=== PATIENT | female | born 1950 | race Caucasian/White ===

== ENCOUNTER 2018-09-12 21:35 | Observation (INO) | payer OTHER ==
[2018-09-12] MEDS ORDERED: diazePAM 2 MG TABLET PO ONE (22:12)
[2018-09-12] MEDS ORDERED: PROCHLORPERAZINE MALEATE 5 MG TABLET PO ONE (22:13)
[2018-09-12] MEDS ORDERED: MECLIZINE HCL 25 MG TABLET (FP) PO ONE (22:45)
[2018-09-12] MEDS ORDERED: MECLIZINE HCL 25 MG TABLET (FP) ONE (22:50)
[2018-09-12 22:52] LABS: EPI CELLS 2.4 /HPF (0-5/HPF); URINE APPEARANCE CLEAR; URINE BACTERIA 13.7 /hpf (NEGATIVE); URINE BILIRUBIN NEGATIVE (NEGATIVE); URINE CASTS 8 /lpf (0-8); URINE COLOR DK YELLOW; URINE GLUCOSE (UA) TRACE (NEGATIVE); URINE KETONE TRACE (NEGATIVE); URINE LEUK ESTERASE 1+ (NEGATIVE); URINE NITRITE NEGATIVE (NEGATIVE); URINE PROTEIN NEGATIVE (NEGATIVE); URINE RBC 6 /hpf (0-4); URINE UROBILINOGEN 0.2 mg/dL (0.2-1.0); URINE WBC 8 /hpf (0-5)
[2018-09-12 22:54] LABS: BASO % 0.8 % (0-2.0); EOS % 3.4 % (0-4.5); HEMATOCRIT 40.8 % (32.4-45.2); HEMOGLOBIN 13.5 GM/dL (10.7-15.3); MCH 26.9 pg (25.7-33.7); MCHC 33.2 g/dl (32.0-36.0); MEAN CELL VOLUME 81.1 fl (80-96); MEAN PLT VOLUME 7.6 fl (7.5-11.1); MONO % 7.1 % (3.8-10.2); NEUT % 43.7 % (42.8-82.8); PLATELET COUNT 191 K/MM3 (134-434); RBC 5.03 M/mm3 (3.60-5.2); RDW 15.3 % (11.6-15.6); WHITE BLOOD COUNT 6.2 K/mm3 (4.0-10.0)
--- NOTE | 2018-09-12 23:02 | PDOC ---
History of Present Illness - General History Source: Patient Exam Limitations: No Limitations - History of Present Illness Initial Comments: 09/12/18 22:55 67F with a PMH of DM and vertigo who presents to the ER with complaints of worsening vertigo. The patient states that yesterday and today, she's had worsening of her vertiginous symptoms and worsening severity. She states that it became so bad that she was not able to stand and she fell on "her behind". She denies syncope, head trauma, numbness, tingling, and weakness. She denies CP , SOB, fever, chills, nausea, vomiting, changes in vision. <Darrell Martínez - Last Filed: 09/13/18 01:29> <Dada Childers - Last Filed: 09/13/18 16:11> - General Chief Complaint: Injury Stated Complaint: FALL Time Seen by Provider: 09/12/18 21:51 Past History - Suicide/Smoking/Psychosocial Hx Smoking History: Unknown if ever smoked <Darrell Martínez - Last Filed: 09/13/18 01:29> <Dada Childers - Last Filed: 09/13/18 16:11> - Past Medical History Allergies/Adverse Reactions: Allergies Allergy/AdvReac Type Severity Reaction Status Date / Time ampicillin Allergy Verified 09/12/18 22:21 bee venom protein (honey bee) Allergy Verified 09/12/18 22:21 Penicillins Allergy Verified 09/12/18 22:21 Home Medications: Ambulatory Orders Acetaminophen [Tylenol] 325 mg PO PRN PRN 09/13/18 Alcohol Antiseptic Pads [Alcohol Prep Pads] 1 each TP ASDIR 30 Days #1 box 09/13 Aspirin [Ecotrin] 325 mg PO DAILY 09/13/18 Baclofen 5 mg PO Q8H 09/13/18 Carisoprodol 350 mg PO DAILY 09/13/18 Clopidogrel Bisulfate [Plavix] 75 mg PO DAILY 09/13/18 Diazepam [Valium] 5 mg PO BID 09/13/18 Dicyclomine HCl [Bentyl -] 10 mg PO Q6H 09/13/18 Famotidine 20 mg PO BID 09/13/18 Furosemide 20 mg PO DAILY 09/13/18 Insulin Detemir [Levemir Flextouch] 10 unit SQ DAILY 30 Days #3 insuln.pen 09/13 Lancets 1 each ASDIR 30 Days #1 box 09/13/18 Lisinopril 5 mg PO DAILY 30 Days #30 tablet 09/13/18 Meclizine HCl [Antivert -] 50 mg PO BID 30 Days #120 tablet 09/13/18 Metoprolol Succinate 25 mg PO BID 09/13/18 Miscellaneous Medical Supply [Glucometer Device] 1 each .ROUTE ASDIR #1 kit 07/03 Miscellaneous Medical Supply [Glucometer Test Strips #100] 1 each .ROUTE ASDIR 30 Days #1 box 09/13/18 Nitrofurantoin Monohyd/M-Cryst [Macrobid -] 100 mg PO BID 5 Days #10 capsule 07/03 Potassium Chloride 10 meq PO DAILY 09/13/18 Pravastatin Sodium 20 mg PO DAILY 09/13/18 Prochlorperazine Maleate 5 mg PO TID 09/13/18 Sitagliptin Phos/Metformin HCl [Janumet 50-1,000 mg Tablet] 1 each PO BID Review of Systems - Review of Systems Able to Perform ROS?: Yes Comments:: 09/12/18 22:59 GENERAL/CONSTITUTIONAL: No fever or chills. No weakness. HEAD, EYES, EARS, NOSE AND THROAT: No change in vision. No ear pain or discharge. No sore throat. CARDIOVASCULAR: No chest pain, palpitations, or lightheadedness. RESPIRATORY: No cough, wheezing, shortness of breath, or hemoptysis. GASTROINTESTINAL: No nausea, vomiting, diarrhea, constipation, or abdominal pain. GENITOURINARY: No dysuria, frequency, hematuria, or change in urination. MUSCULOSKELETAL: No joint or muscle swelling or pain. No neck or back pain. SKIN: No rash or lesions. NEUROLOGIC: + for vertiginous dizziness. No headache, numbness, tingling, focal weakness, loss of consciousness, or change in strength/sensation. Is the patient limited Tamazight proficient: No <Darrell Martínez - Last Filed: 09/13/18 01:29> *Physical Exam - Vital Signs Last Vital Signs Temp Pulse Resp BP Pulse Ox 97.8 F 84 17 170/99 97 09/12/18 22:14 09/12/18 22:14 09/12/18 22:14 09/12/18 22:14 09/12/18 22:14 - Physical Exam Comments: 09/12/18 22:59 GENERAL: Well developed, well nourished. Awake and alert. No acute distress. HEENT: Normocephalic, atraumatic. Hearing grossly normal. Moist mucous membranes. PERRLA, EOMI. No conjunctival pallor. Sclera are non-icteric. NECK: Supple. Full ROM. No JVD. CARDIOVASCULAR: Regular rate and rhythm. No murmurs, rubs, or gallops. PULMONARY: No evidence of respiratory distress. Lungs clear to auscultation bilaterally. No wheezing, rales or rhonchi. ABDOMINAL: Soft. Non-tender. Protuberant Non-distended. No rebound or guarding. MUSCULOSKELETAL: Normal range of motion at all joints. No bony deformities or tenderness. EXTREMITIES: No cyanosis. No clubbing. No edema. No calf tenderness or swelling. SKIN: Warm and dry. Normal capillary refill. No rashes. No jaundice. NEUROLOGICAL: Alert, awake, appropriate. Cranial nerves 2-12 intact. No deficits to light touch and temperature in face, upper extremities and lower extremities. 5/5 strength in deltoids, biceps, triceps, quadriceps, hamstrings, and gastrocnemius. Normoreflexic in the upper and lower extremities. Finger to nose normal bilaterally. Normal speech. PSYCHIATRIC: Cooperative. Good eye contact. Appropriate mood and affect. <Darrell Martínez - Last Filed: 09/13/18 01:29> - Vital Signs Last Vital Signs Temp Pulse Resp BP Pulse Ox 98.1 F 92 H 18 121/70 100 09/13/18 15:55 09/13/18 15:55 09/13/18 14:44 09/13/18 15:55 09/13/18 15:55 <Dada Childers - Last Filed: 09/13/18 16:11> ED Treatment Course - LABORATORY CBC & Chemistry Diagram: 09/12/18 22:39 09/12/18 22:39 - ADDITIONAL ORDERS Additional order review: Laboratory Results 09/12/18 22:39 Urine Color Dk yellow Urine Appearance Clear Urine pH 5.0 Ur Specific [place] 1.021 Urine Protein Negative Urine Glucose (UA) Trace Urine Ketones Trace H Urine Blood Negative Urine Nitrite Negative Urine Bilirubin Negative Urine Urobilinogen 0.2 Ur Leukocyte Esterase 1+ H Urine WBC (Auto) 8 Urine RBC (Auto) 6 Urine Casts (Auto) 8 U Epithel Cells (Auto) 2.4 Urine Bacteria (Auto) 13.7 09/12/18 22:39 RBC 5.03 MCV 81.1 MCHC 33.2 RDW 15.3 MPV 7.6 Neutrophils % 43.7 Lymphocytes % 45.0 H Monocytes % 7.1 Eosinophils % 3.4 Basophils % 0.8 - RADIOLOGY Radiology Studies Ordered: Category Date Time Status HEAD CT WITHOUT CONTRAST [CT] Stat CT Scan 09/12/18 22:10 Ordered - Medications Given in the ED: ED Medications Discontinued Medications Generic Name Dose Route Start Last Admin Trade Name Freq PRN Reason Stop Dose Admin Diazepam 2 mg 09/12/18 22:12 09/12/18 22:55 Valium - PO 09/12/18 22:13 Not Given ONCE ONE Meclizine HCl 25 mg 09/12/18 22:45 09/12/18 22:55 Antivert - PO 09/12/18 22:46 25 mg ONCE ONE Administration Prochlorperazine Maleate 5 mg 09/12/18 22:13 09/12/18 22:55 Compazine - PO 09/12/18 22:14 Not Given ONCE ONE <Darrell Martínez - Last Filed: 09/13/18 01:29> - LABORATORY CBC & Chemistry Diagram: 09/13/18 05:05 09/13/18 05:05 - ADDITIONAL ORDERS Additional order review: 09/13/18 09/12/18 00:12 22:39 RBC 5.03 MCV 81.1 MCHC 33.2 RDW 15.3 MPV 7.6 Neutrophils % 43.7 Lymphocytes % 45.0 H Monocytes % 7.1 Eosinophils % 3.4 Basophils % 0.8 POC Glucometer 222 - Medications Given in the ED: ED Medications Discontinued Medications Generic Name Dose Route Start Last Admin Trade Name Freq PRN Reason Stop Dose Admin Diazepam 2 mg 09/12/18 22:12 09/12/18 22:55 Valium - PO 09/12/18 22:13 Not Given ONCE ONE Ceftriaxone Sodium 1,000 mg/ 50 mls @ 100 mls/hr 09/13/18 00:08 09/13/18 01: 36 Dextrose IVPB 09/13/18 00:37 100 mls/hr ONCE ONE Administration Insulin Detemir 5 units 09/13/18 10:48 09/13/18 12:19 Levemir Vial SQ 09/13/18 10:49 5 unit ONCE ONE Administration Meclizine HCl 25 mg 09/12/18 22:45 09/12/18 22:55 Antivert - PO 09/12/18 22:46 25 mg ONCE ONE Administration Prochlorperazine Maleate 5 mg 09/12/18 22:13 09/12/18 22:55 Compazine - PO 09/12/18 22:14 Not Given ONCE ONE <Dada Childers - Last Filed: 09/13/18 16:11> Medical Decision Making - Medical Decision Making 09/12/18 23:00 67F with a PMH of vertigo and DM who presents to the ER with complaints of falling twice with worsening of her vertiginous symptoms. PE unremarkable. Will CTH and obtain urine sample. 09/13/18 00:07 Labs WNL. CTH negative. UA shows UTI. Will give ceftriaxone. 09/13/18 01:[address] Fleming for admission. <Darrell Martínez - Last Filed: 09/13/18 01:29> *DC/Admit/Observation/Transfer <Darrell Martínez - Last Filed: 09/13/18 01:29> <Dada Childers - Last Filed: 09/13/18 16:11> Diagnosis at time of Disposition: Vertigo - Discharge Dispostion Disposition: HOME Condition at time of disposition: Improved
[2018-09-12 23:47] LABS: ALK PHOS 93 U/L (45-117); ANION GAP 5 MMOL/L (8-16); BILIRUBIN,TOTAL 0.7 mg/dL (0.2-1); BLOOD UREA NITROGEN 7 mg/dL (7-18); CALCIUM 9.4 mg/dL (8.5-10.1); CHLORIDE 105 mmol/L (98-107); CO2 29 mmol/L (21-32); CREATININE 0.6 mg/dL (0.55-1.3); GLUCOSE,RANDOM 233 mg/dL (74-106); POTASSIUM 3.8 mmol/L (3.5-5.1); SGOT/AST 29 U/L (15-37); SGPT/ALT 26 U/L (13-61); SODIUM 139 mmol/L (136-145); TOT PROT 6.8 g/dl (6.4-8.2)
[2018-09-13] MEDS ORDERED: CEFTRIAXONE 1,000 MG in DEXTROSE 5%-WATER - 50 ML IVPB ONE (00:08)
--- NOTE | 2018-09-13 00:47 | PDOC ---
Documentation entered by Carlos Ortiz SCRIBE, acting as scribe for Kitty Ashton DO. Kitty Ashton DO: This documentation has been prepared by the [place] Daniel, SCRIBE, under my direction and personally reviewed by me in its entirety. I confirm that the documentation accurately reflects all work , treatment, procedures, and medical decision making performed by me. Attending Attestation - Resident Resident Name: CassiusyessyDarrell - ED Attending Attestation I have performed the following: I have examined & evaluated the patient, The case was reviewed & discussed with the resident, I agree w/resident's findings & plan - HPI HPI: 09/12/18 22:37 The patient is a 67 year old female with a past medical history of diabetes and vertigo here today for evaluation s/p falls. The patient reports that she has been falling for the past two days and notes associated worsening vertiginous symptoms. She denies any syncope. Patient denies headache, lightheadedness. Denies fever, chills. Denies chest pain, shortness of breath. Denies nausea, vomiting, diarrhea, abdominal pain. Allergies: ampicillin, bee venom protein, penicillins PCP: Vernon Haddad - Physicial Exam PE: 09/12/18 22:38 Agree with resident's physical exam. - Medical Decision Making 09/13/18 00:45 67-year-old female complaining of dizziness and inability to ambulate effectively to the bathroom CT scan of the brain showed no acute abnormality Patient given meclizine in the emergency department with partial relief Plan for admission to medical service for further evaluation due to intractable vertigo Patient states that her gait instability is severe enough that she requires a Olvera catheter and does not feel safe walking at all
--- NOTE | 2018-09-13 01:17 | PN ---
Teaching Attending Note Name of Resident: Carlos Alexandre ATTENDING PHYSICIAN STATEMENT I saw and evaluated the patient. I reviewed the resident's note and discussed the case with the resident. I agree with the resident's findings and plan as documented. SUBJECTIVE: Seen and examined; please refer to resident note for further historical information. Briefly, this is a 67 y/o female presenting for intractable vertigo contributing to an element of percieved ataxia (on further questioning she feels like her right side is heavier but without any jordan falling to the R) ; sx were mostly relieved by meclizine in the ER (she is on home valium and compazine but as we did not have brand name valium so she refused). Afebrile and hemodynamically stable. CABG 2013 ([place] 2012, last echo 15 years ago , last stress test 9 years ago). 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 Presenting sx were 1 day of worsening vertiginous sx and lightheadedness. The documented ataxia seems to be moreso due to her being anxious to stand/walk with R-sided percieved heavines. Negative orthostatics in the ER. Negative tinnitus or hearing loss. No urinary sx. Was able to stand for Romberg which was negative and she was able to ambulate without difficulty with a cane. 10 sys ROS done and negative aside from HPI PMH, PSH, FH, SH reviewed Home Medications Medication Instructions Recorded Unobtainable 09/12/18 *Working on reconciling; she knows she takes lopressor and metformin; pharmacy closed OBJECTIVE: VS, labs, imaging reviewed NAD, AAO, resting comfortably in bed NC AT EOMI PERRLA RRR s1/2 no mgr Lungs CTAB, w/ sym exp NT ND +BS EKG reviewed CT head without acute pathology MRI brain w/o contrast pending ASSESSMENT AND PLAN: Patient presents with intractable vertigo and associated percieved ataxia. She is unable to recall her home medications and has no prior history of inpatient admissions here. 1) Worsening Vertigo -Meclizine 50mg and monitoring symptomatic improvement. Titrate as needed. She does not want the valium here she takes at home for this as we do not have brand name but is agreeable to meclizine -Negative Romberg and no obvious cerebellar signs with negligable NIHSS but given her concern of R-sided 'heaviness' would be reasonable to check for any vertebral A. stenosis with US and MRI brain to r/o cerebellar involvement. No ear pain, tinnitus, or hearing loss making labyrinthitis, Meniere's less likely. -Would be helpful to check old records. Has seen ENT for vertigo in the past when she was diagnosed 2) DM with hyperglycemia -Confirm home medications -Check A1c and place on SSI while inpatient. 3) Hx CAD -She relays a history of multiple caths, stenting, etc. She cannot recall her medications. No stents within past 12 months to her knowledge. 2013 CABG at [facility] -She has no active cardiac issues but wishes for a new parts counter associate (was lost to followup); can refer her on discharge. 4) Morbid Obesity (BMI 56) -Ordnance Keeper prior to DC; consider bariatric referral.
[2018-09-13] MEDS ORDERED: CEFTRIAXONE 1 GM/50 ML BAG ONE (01:30)
--- NOTE | 2018-09-13 03:02 | HP ---
CHIEF COMPLAINT: vertigo PCP: Catie HISTORY OF PRESENT ILLNESS: Patient is a 67 y/o F w/ PMHx CAD s/p 14 caths, 12 stents, ND, CABG 2012 w/ Dr. Barrientos at [facility] and not following a edging machine catcher since then, no echo in 15 yrs, DM, chronic vertigo, chronic R leg cellulitis, p/w 1 day h/o worsening vertigo and lightheadedness with standing and with use of the bathroom, feeling too unsteady to safely stand. Afebrile on presentation w/ normal rate, BP 170/ 99. Labs remarkable for glucose 233 and marginal UA. HCT negative. Meclizine, ceftriaxone, compazine given in ED. Valium was offered but Pt states she can only take brand name Valium and has adverse reaction to generic. Symptomatically improved at time of encounter. Home medications unknown. Recent Travel: PAST MEDICAL HISTORY: As per HPI PAST SURGICAL HISTORY: As per HPI Social History: Smoking: minor remote Hx Alcohol: no Drugs: no Family History: Allergies ampicillin Allergy (Verified 09/12/18 22:21) bee venom protein (honey bee) Allergy (Verified 09/12/18 22:21) Penicillins Allergy (Verified 09/12/18 22:21) HOME MEDICATIONS: Home Medications Medication Instructions Recorded Unobtainable 09/12/18 REVIEW OF SYSTEMS CONSTITUTIONAL: PHYSICAL EXAMINATION Vital Signs - 24 hr 09/12/18 22:00 Temperature 97.8 F Pulse Rate 84 Respiratory 17 Rate Blood Pressure 170/99 O2 Sat by Pulse 97 Oximetry (%) GENERAL: A&Ox3, NAD HEENT: NC/AT, PERRLA, EOMI, MMM NECK: Normal range of motion, supple without lymphadenopathy, JVD, or masses. LUNGS: Breath sounds equal, clear to auscultation bilaterally. No wheezes, and no crackles. No accessory muscle use. HEART: Regular rate and rhythm, normal S1 and S2 without murmur, rub or gallop. ABDOMEN: Soft, nontender, not distended, normoactive bowel sounds, no guarding, no rebound, no masses. No hepatomegaly or splenomegaly. UPPER EXTREMITIES: 2+ pulses, warm, well-perfused. No cyanosis. No clubbing. No peripheral edema. LOWER EXTREMITIES: 2+ pulses, warm, well-perfused. No calf tenderness. No peripheral edema. Gross venous stasis w/ skin changes, RLE dressed for chronic cellulitis. NEUROLOGICAL: NIHSS 0, non-focal exam PSYCHIATRIC: Cooperative. Good eye contact. Appropriate mood and affect. SKIN: Warm, dry, normal turgor, no rashes or lesions noted, normal capillary refill. Laboratory Results - last 24 hr 09/12/18 09/12/18 09/12/18 22:39 22:39 22:39 WBC 6.2 RBC 5.03 Hgb 13.5 Hct 40.8 MCV 81.1 MCH 26.9 MCHC 33.2 RDW 15.3 Plt Count 191 MPV 7.6 Absolute Neuts (auto) 2.7 Neutrophils % 43.7 Lymphocytes % 45.0 H Monocytes % 7.1 Eosinophils % 3.4 Basophils % 0.8 Nucleated RBC % 0 Sodium 139 Potassium 3.8 Chloride 105 Carbon Dioxide 29 Anion Gap 5 L BUN 7 Creatinine 0.6 Creat Clearance w eGFR 100.02 POC Glucometer Random Glucose 233 H Calcium 9.4 Total Bilirubin 0.7 AST 29 ALT 26 Alkaline Phosphatase 93 Troponin I < 0.02 Total Protein 6.8 Albumin 3.0 L Urine Color Dk yellow Urine Appearance Clear Urine pH 5.0 Ur Specific [place] 1.021 Urine Protein Negative Urine Glucose (UA) Trace Urine Ketones Trace H Urine Blood Negative Urine Nitrite Negative Urine Bilirubin Negative Urine Urobilinogen 0.2 Ur Leukocyte Esterase 1+ H Urine WBC (Auto) 8 Urine RBC (Auto) 6 Urine Casts (Auto) 8 U Epithel Cells (Auto) 2.4 Urine Bacteria (Auto) 13.7 09/13/18 00:12 WBC RBC Hgb Hct MCV MCH MCHC RDW Plt Count MPV Absolute Neuts (auto) Neutrophils % Lymphocytes % Monocytes % Eosinophils % Basophils % Nucleated RBC % Sodium Potassium Chloride Carbon Dioxide Anion Gap BUN Creatinine Creat Clearance w eGFR POC Glucometer 222 Random Glucose Calcium Total Bilirubin AST ALT Alkaline Phosphatase Troponin I Total Protein Albumin Urine Color Urine Appearance Urine pH Ur Specific [place] Urine Protein Urine Glucose (UA) Urine Ketones Urine Blood Urine Nitrite Urine Bilirubin Urine Urobilinogen Ur Leukocyte Esterase Urine WBC (Auto) Urine RBC (Auto) Urine Casts (Auto) U Epithel Cells (Auto) Urine Bacteria (Auto) ASSESSMENT/PLAN: 67 y/o F w/ PMHx CAD s/p 14 caths, 12 stents, ND, CABG 2012 w/ Dr. Barrientos at [facility] and not following a edging machine catcher since then, no echo in 15 yrs, DM, chronic vertigo, chronic R leg cellulitis, p/w 1 day h/o worsening vertigo and lightheadedness #A: -improved w/ symptomatic treatment -minimal suspicion of CVA -no tinnitus, no ataxia appreciated -suboptimal glycemic control -will need outpt cardiology #P: -increased dose of meclizine -brain MRI w/o contrast -SSI, BGM -obtain home meds when pharmacy is open -A1c -PT -f/u carotid dopplers -no IVF -f/u BMP, Mg, Phos -diabetic diet -Lovenox for DVT PPx -full code -observe on med/surg Visit type - Emergency Visit Emergency Visit: Yes ED Registration Date: 09/13/18 Care time: The patient presented to the Emergency Department on the above date and was hospitalized for further evaluation of their emergent condition. - New Patient This patient is new to me today: Yes Date on this admission: 09/13/18 - Critical Care Critical Care patient: No
[2018-09-13 05:27] LABS: BASO % 0.6 % (0-2.0); EOS % 3.9 % (0-4.5); HEMATOCRIT 41.3 % (32.4-45.2); HEMOGLOBIN 13.9 GM/dL (10.7-15.3); LYMPH % 49.7 % (8-40); MCH 27.3 pg (25.7-33.7); MCHC 33.6 g/dl (32.0-36.0); MEAN CELL VOLUME 81.3 fl (80-96); MEAN PLT VOLUME 7.7 fl (7.5-11.1); MONO % 6.5 % (3.8-10.2); NEUT % 39.3 % (42.8-82.8); PLATELET COUNT 192 K/MM3 (134-434); RBC 5.08 M/mm3 (3.60-5.2); RDW 15.4 % (11.6-15.6); WHITE BLOOD COUNT 6.1 K/mm3 (4.0-10.0)
[2018-09-13 05:51] LABS: ANION GAP 6 MMOL/L (8-16); BLOOD UREA NITROGEN 7 mg/dL (7-18); CALCIUM 9.6 mg/dL (8.5-10.1); CHLORIDE 106 mmol/L (98-107); CO2 28 mmol/L (21-32); CREATININE 0.6 mg/dL (0.55-1.3); GLUCOSE,RANDOM 230 mg/dL (74-106); MAGNESIUM 1.4 mg/dL (1.8-2.4); PHOSPHOROUS 3.8 mg/dL (2.5-4.9); POTASSIUM 4.1 mmol/L (3.5-5.1); SODIUM 140 mmol/L (136-145)
[2018-09-13] MEDS ORDERED: INSULIN (NOVOLOG) ASPART 100 UNITS/ML 10ML VIAL ONE ×2 (07:16→12:14)
[2018-09-13] MEDS: INSULIN SLIDING SCALE (NOVOLOG) 1 VIAL SQ SCH ×4 (07:21→22:01)
[2018-09-13] MEDS: ENOXAPARIN NA (PORCINE) 40 MG/0.4 ML DISP.SYRIN SQ SCH (10:14)
[2018-09-13] MEDS: MECLIZINE HCL 25 MG TABLET (FP) PO SCH ×2 (10:14→22:00)
[2018-09-13] MEDS ORDERED: INSULIN (LEVEMIR) 100 UNITS/ML UNITS SQ ONE ×2 (10:48→12:14)
--- NOTE | 2018-09-13 13:40 | EKG ---
Test Reason : Blood Pressure : / mmHG Vent. Rate : 086 BPM Atrial Rate : 086 BPM P-R Int : 174 ms QRS Dur : 072 ms QT Int : 398 ms P-R-T Axes : 057 -53 085 degrees QTc Int : 476 ms NORMAL SINUS RHYTHM POSSIBLE LEFT ATRIAL ENLARGEMENT LEFT AXIS DEVIATION ANTEROSEPTAL INFARCT , AGE UNDETERMINED ABNORMAL ECG NO PREVIOUS ECGS AVAILABLE Confirmed by ROSIE ISABEL MD ([id number]) on 09/13/2018 1:39:37 PM Referred By: Confirmed By:ROSIE ISABEL MD
--- NOTE | 2018-09-13 15:51 | PN ---
Teaching Attending Note Name of Resident: Dinh Pineda ATTENDING PHYSICIAN STATEMENT I saw and evaluated the patient. I reviewed the resident's note and discussed the case with the resident. I agree with the resident's findings and plan as documented. SUBJECTIVE:asymptomatic. states dizzyness and decreased hearing has resolved but has been having it on and off for several weeks. has not followed up with a doctor appears to be for over a year. was started on a new IV medication for DM but has not started the medication yet. staes she urinates frequently but contributes to drinking plenty of water. denies Cp, SOB, fever, chills, N/V/C/D OBJECTIVE: Last Vital Signs Temp Pulse Resp BP Pulse Ox 98.1 F 92 H 18 121/70 100 09/13/18 15:55 09/13/18 15:55 09/13/18 14:44 09/13/18 15:55 09/13/18 15:55 General NAD HEENT no nystagmus CV s1 s2 RRR no murmur/rub/gallop Lungs CTA B/L no wheezng/rales/rhonchi Abdomen soft NT/ND Extremities no pedal edema ASSESSMENT AND PLAN: 67yo F with PMH CAD s/p CABG, DM, HTN and vertigo presented wot the ER wtih worsening vertigo 1. Vertigo- symptoms resolved with meclizine. ER resident evaluated ears and reports no fluid or signs of OM. will obtain MRI to evaluate as also having intermittent hearing loss. states she had multiple MRI in past and were always normal. carotid doppler negative. 2. UTI- received ceftriaxone x1. f/u Cx 3. DM- uncontrolled. A1c 12. states she is compliant with oral mediction but does not take injectable that was prescribed almost a year ago. will start levemir 5 untis this AM and will need to monitor sugars closely and titrate as needed. instructed to make log and bring to appt next week. 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 stressed endrocrine follow up as outpatient 4. HTN- uncontrolled. will start lisinopril 5. hypomagnesemia- Mg 6. CAD s/p CABG- cont asa. should not be on plavix given last stent >1 year 7. can d/c hojme pending results of MRI. pt is poor historian and does not know medications (they are mail ordered) and appears to not have followed up with PMD or specialist. stressed importance of these. Will need to verify home medications in order to do appropriate med rec. )
--- NOTE | 2018-09-13 16:32 | PN ---
Physical Exam: SUBJECTIVE: Patient seen and examined at bedside. She endorses that her dizziness significantly improved with increased dose of Meclizine. Patient endorses poor compliance with her home medications. OBJECTIVE: Vital Signs Period Temp Pulse Resp BP Sys/Mcleod Pulse Ox Last 24 Hr 97.8 F-98.1 F 84-95 17-18 115-170/61-99 96-100 GENERAL: The patient is awake, alert, and fully oriented, in no acute distress. HEAD: Normocephalic, atraumatic. EYES: PERRL, extraocular movements intact without nystagmus, sclera anicteric, conjunctiva clear. ENT: Oropharynx clear, without erythema or exudates. Moist mucous membranes. NECK: Trachea midline, full range of motion. Supple without lymphadenopathy. LUNGS: Breath sounds equal, clear to auscultation bilaterally, no wheezes, no crackles. No accessory muscle use. HEART: Regular rate and rhythm, S1, S2 without murmur, rub or gallop. ABDOMEN: Obese. Soft, nondistended, nontender to light and deep palpation x4 quadrants, no rebound tenderness, no guarding. Normoactive bowel sounds x4 quadrants. no hepatosplenomegaly, no masses. EXTREMITIES: 2+ radial, 1+ dorsalis pedis pulses bilaterally. Warm, well- perfused. Significant bilateral lower extremity edema. NEUROLOGICAL: Cranial nerves II through XII grossly intact. Normal speech. Gait waddling, slight ataxia. Intact finger to nose, heel to malik. Negative Romberg' s test. PSYCH: Normal mood, normal affect upon my encounter. SKIN: Warm, dry. Laboratory Results - last 24 hr 09/12/18 09/12/18 09/12/18 22:39 22:39 22:39 WBC 6.2 RBC 5.03 Hgb 13.5 Hct 40.8 MCV 81.1 MCH 26.9 MCHC 33.2 RDW 15.3 Plt Count 191 MPV 7.6 Absolute Neuts (auto) 2.7 Neutrophils % 43.7 Lymphocytes % 45.0 H Monocytes % 7.1 Eosinophils % 3.4 Basophils % 0.8 Nucleated RBC % 0 Sodium 139 Potassium 3.8 Chloride 105 Carbon Dioxide 29 Anion Gap 5 L BUN 7 Creatinine 0.6 Creat Clearance w eGFR 100.02 POC Glucometer Random Glucose 233 H Hemoglobin A1c % Calcium 9.4 Phosphorus Magnesium Total Bilirubin 0.7 AST 29 ALT 26 Alkaline Phosphatase 93 Troponin I < 0.02 Total Protein 6.8 Albumin 3.0 L Urine Color Dk yellow Urine Appearance Clear Urine pH 5.0 Ur Specific Dighton 1.021 Urine Protein Negative Urine Glucose (UA) Trace Urine Ketones Trace H Urine Blood Negative Urine Nitrite Negative Urine Bilirubin Negative Urine Urobilinogen 0.2 Ur Leukocyte Esterase 1+ H Urine WBC (Auto) 8 Urine RBC (Auto) 6 Urine Casts (Auto) 8 U Epithel Cells (Auto) 2.4 Urine Bacteria (Auto) 13.7 09/13/18 09/13/18 09/13/18 00:12 05:05 05:05 WBC 6.1 RBC 5.08 Hgb 13.9 Hct 41.3 MCV 81.3 MCH 27.3 MCHC 33.6 RDW 15.4 Plt Count 192 MPV 7.7 Absolute Neuts (auto) 2.4 Neutrophils % 39.3 L Lymphocytes % 49.7 H Monocytes % 6.5 Eosinophils % 3.9 Basophils % 0.6 Nucleated RBC % 0 Sodium 140 Potassium 4.1 Chloride 106 Carbon Dioxide 28 Anion Gap 6 L BUN 7 Creatinine 0.6 Creat Clearance w eGFR 100.02 POC Glucometer 222 Random Glucose 230 H Hemoglobin A1c % Calcium 9.6 Phosphorus 3.8 Magnesium 1.4 L Total Bilirubin AST ALT Alkaline Phosphatase Troponin I Total Protein Albumin Urine Color Urine Appearance Urine pH Ur Specific Dighton Urine Protein Urine Glucose (UA) Urine Ketones Urine Blood Urine Nitrite Urine Bilirubin Urine Urobilinogen Ur Leukocyte Esterase Urine WBC (Auto) Urine RBC (Auto) Urine Casts (Auto) U Epithel Cells (Auto) Urine Bacteria (Auto) 09/13/18 09/13/18 09/13/18 05:05 07:13 12:09 WBC RBC Hgb Hct MCV MCH MCHC RDW Plt Count MPV Absolute Neuts (auto) Neutrophils % Lymphocytes % Monocytes % Eosinophils % Basophils % Nucleated RBC % Sodium Potassium Chloride Carbon Dioxide Anion Gap BUN Creatinine Creat Clearance w eGFR POC Glucometer 238 269 Random Glucose Hemoglobin A1c % 11.9 H Calcium Phosphorus Magnesium Total Bilirubin AST ALT Alkaline Phosphatase Troponin I Total Protein Albumin Urine Color Urine Appearance Urine pH Ur Specific Dighton Urine Protein Urine Glucose (UA) Urine Ketones Urine Blood Urine Nitrite Urine Bilirubin Urine Urobilinogen Ur Leukocyte Esterase Urine WBC (Auto) Urine RBC (Auto) Urine Casts (Auto) U Epithel Cells (Auto) Urine Bacteria (Auto) Active Medications Generic Name Dose Route Start Last Admin Trade Name Hari PRN Reason Stop Dose Admin Enoxaparin Sodium 40 mg 09/13/18 10:00 09/13/18 10:14 Lovenox - SQ 40 mg DAILY RADHA Administration Insulin Aspart 1 vial 09/13/18 07:00 09/13/18 12:47 Novolog Vial Sliding Scale - SQ 6 units ACHS RADHA Administration Protocol Meclizine HCl 50 mg 09/13/18 10:00 09/13/18 10:14 Antivert - PO 50 mg BID RADHA Administration ASSESSMENT/PLAN: Patient is a 67 year old female with history of coronary artery disease s/p stents and CABG, diabetes mellitus, hypertension, vertigo presents with complaint of dizziness. Vertigo -Numerous conributing etiologies include hypergylcemia due to poorly controlled diabetes, or UTI. -Patient does endorse hearing loss with bilateral ear fulness. Has not followed up with ENT for over one year. -MRI brain negative for acute inarct -Carotid duplex US negative for hemodynamically significant stenosis -Meclizine increased to 50mg PO BID -Fall precautions Urinary tract infection -Ceftriaxone 1 gram IV daily -Follow urine cultures Diabetes mellitus II -Poorly controlled A1c 11.9 -Begin Levemir 10 units daily -Insulin sliding scale ACHS -Fingerstick blood glucose monitoring ACHS -Patient will require outpatient endocrinology follow up. Hypertension -Metoprolol 25mg PO BID -Lisinopril 5mg PO daily Coronary artery disease s/p stents, CABG -Aspirin 325mg PO daily -Holding Plavix as it has been more than 1 year since last stent -Atorvastatin 10mg PO HS -Patient will require outpatient cardiology follow up. FEN -No IV fluids indicated -Within normal limits. Replete as necessary -Diabetic diet Prophylaxis -Lovenox 40mg subq daily Disposition -Continue care in Telemetry floor Visit type - Emergency Visit Emergency Visit: Yes ED Registration Date: 09/13/18 Care time: The patient presented to the Emergency Department on the above date and was hospitalized for further evaluation of their emergent condition. - New Patient This patient is new to me today: Yes Date on this admission: 09/13/18 - Critical Care Critical Care patient: No - Discharge Referral Referred to [facility].: No
[2018-09-13 17:07] VITALS: BMI 49.1
[2018-09-13] MEDS ORDERED: ATORVASTATIN CA 10 MG TABLET (FP) PO SCH (22:00)
[2018-09-13] MEDS: metoPROLOL SUCCINATE 25 MG TAB.SR.24H (FP) PO SCH (22:00)
[2018-09-13] MEDS ORDERED: PATIENT'S OWN MEDICATION (NON-FORMULARY) (Famotidine [Famotidine] 20 MG) PO SCH (22:00)
[2018-09-13] MEDS: RANITIDINE HCL 150 MG TABLET (FP) PO SCH (22:00)
[2018-09-14 04:27] VITALS: TEMP 98.1
[2018-09-14] MEDS: INSULIN SLIDING SCALE (NOVOLOG) 1 VIAL SQ SCH ×2 (06:44→11:26)
[2018-09-14] MEDS ORDERED: INSULIN (LEVEMIR) 100 UNITS/ML UNITS SQ ONE ×2 (07:38→10:00)
[2018-09-14] MEDS ORDERED: DEXTROSE 5%-WATER - 50 ML IVPB ONE (09:28)
[2018-09-14] MEDS ORDERED: cefTRIAXone SODIUM 1 GM VIAL ONE (09:28)
[2018-09-14] MEDS: MECLIZINE HCL 25 MG TABLET (FP) PO SCH (09:45)
[2018-09-14] MEDS: RANITIDINE HCL 150 MG TABLET (FP) PO SCH (09:45)
[2018-09-14] MEDS: metoPROLOL SUCCINATE 25 MG TAB.SR.24H (FP) PO SCH (09:45)
[2018-09-14] MEDS: ENOXAPARIN NA (PORCINE) 40 MG/0.4 ML DISP.SYRIN SQ SCH (09:45)
--- NOTE | 2018-09-14 09:48 | DS ---
Physical Exam: SUBJECTIVE: Patient seen and examined at bedside this morning. She endorses that her dizziness has resolved with the increased dose of Meclizine. Patient denies acute complaints this morning. Denies subjective fevers, chills, shortness of breath, chest pain, palpitations, abdominal pain, nausea, vomiting. OBJECTIVE: Vital Signs Period Temp Pulse Resp BP Sys/Mcleod Pulse Ox Last 24 Hr 98 F-98.4 F 84-98 18-20 115-148/61-82 95-100 PHYSICAL EXAM GENERAL: The patient is awake, alert, and fully oriented, in no acute distress. HEAD: Normocephalic, atraumatic. EYES: PERRL, extraocular movements intact without nystagmus, sclera anicteric, conjunctiva clear. ENT: Oropharynx clear, without erythema or exudates. Moist mucous membranes. NECK: Trachea midline, full range of motion. Supple without lymphadenopathy. LUNGS: Breath sounds equal, clear to auscultation bilaterally, no wheezes, no crackles. No accessory muscle use. HEART: Regular rate and rhythm, S1, S2 without murmur, rub or gallop. ABDOMEN: Obese. Soft, nondistended, nontender to light and deep palpation x4 quadrants, no rebound tenderness, no guarding. Normoactive bowel sounds x4 quadrants. no hepatosplenomegaly, no masses. EXTREMITIES: 2+ radial, 1+ dorsalis pedis pulses bilaterally. Warm, well- perfused. Significant bilateral lower extremity edema. NEUROLOGICAL: Cranial nerves II through XII grossly intact. Normal speech. Gait improving, significantly less ataxic. Intact finger to nose, and heel to malik. Negative Romberg's test. PSYCH: Normal mood, normal affect upon my encounter. SKIN: Warm, dry. LABS Laboratory Results - last 24 hr 09/13/18 09/13/18 09/13/18 12:09 16:47 21:58 POC Glucometer 269 297 307 09/14/18 05:48 POC Glucometer 201 HOSPITAL COURSE: Date of Admission:09/13/18 Date of Discharge: 09/14/18 Patient is a 67 year old female with history of coronary artery disease s/p stents and CABG, diabetes mellitus, hypertension, vertigo presents with complaint of dizziness. CT head was negative for acute intracranial pathology. MRI brain negative for acute inarct. Carotid duplex US negative for hemodynamically significant stenosis. Patient's Meclizine dose was increased to 50mg BID. Patient's UA was notable for UTI; she was started on Ceftriaxone, discharged with Macrobid for 5 day course. Patient was hyperglycemic with HbA1c 11.9. Patient was started on Levemir 10units daily. Patient was started on Lisinopril 5mg daily for hypertension. Patient was evaluated by physical therapist and walked 200feet. Patient was discharged home with [facility]. Discussed importance of compliance, and follow up with primary care physician, ENT physician, tabulating supervisor, casting repairer. Minutes to complete discharge: 35 Discharge Summary Reason For Visit: ATAXIA,VERTIGO Current Active Problems Diabetes (Acute) Dizziness (Acute) UTI (urinary tract infection) (Acute) Vertigo (Acute) CAD, multiple vessel (Chronic) Condition: Improved - Instructions Diet, Activity, Other Instructions: You were admitted to the hospital with dizziness. You were treated with Meclizine. You had an MRI of the brain which showed no acute brain infract. Your blood sugars were noted to be significantly elevated. You A1c is 11.9. You will be started on Insulin. You were noted to have a urinary tract infection and were treated with antibiotics. You are being discharged home. It is very important that you take your medications as prescribed and follow up with your doctors, this will prevent further worsening of your conditions including diabetes and hypertension. Both of which can lead to permanent injury and if not managed appropriately. These conditions put you at an increased risk of stroke and heart disease. Follow a low salt diabetic diet. We have made some changes to your medications: STOP taking Victoza, Metformin, and Glypizide. Instead, we will start you on Insulin, Levemir. Take 10 units in the morning. It is important that you check your fingerstick blood sugars daily, and record the readings. Bring these readings with you to your primary care physician, and casting repairer appointments. We have increased your Meclizine dose to 25mg twice a day (every 12 hours). Continue taking antibiotic: Macrobid 100mg twice a day (every 12 hours) for 5 days. Begin taking Lisinopril 5mg daily for your blood pressure. Discuss these medication changes with your primary care physician at your follow up appointment. Follow up with your primary care physician within one - two days of discharge. A referral to [facility] has been provided. Follow up with your ENT (Dr. Head) within two- three days after discharge. A referral has been provided. Follow up with casting repairer (Dr. Chao) within two- three days after discharge. A referral has been provided. Follow up with your tabulating supervisor within one week of discharge. A referral to Dr. Holcomb has been provided. Please be sure to call the phone numbers provided to schedule your follow up appointments. Return to the nearest Emergency Department if you experience worsening symptoms , subjective fevers, chills, shortness of breath, chest pain, palpitations, abdominal pain, nausea, vomiting, lightheadedness, worsening dizziness, falls, loss of consciousness, any trauma. Referrals: [facility] [place] [Provider Group] Justo Holcomb MD [Staff Physician] - Luis Chao MD [Staff Physician] - Alton Head [Non Staff, Medical] - Asa Galeana MD [Staff Physician] - Disposition: VNS/HOME HEALTH CARE - Home Medications Comprehensive Discharge Medication List: Ambulatory Orders Alcohol Antiseptic Pads [Alcohol Prep Pads] 1 each TP ASDIR 30 Days #1 box 09/13 Aspirin [Ecotrin] 325 mg PO DAILY 09/13/18 Diazepam [Valium] 5 mg PO BID 09/13/18 Famotidine 20 mg PO BID 09/13/18 Insulin Detemir [Levemir Flextouch] 10 unit SQ DAILY 30 Days #3 insuln.pen 09/13 Lancets 1 each MC ASDIR 30 Days #1 box 09/13/18 Lisinopril 5 mg PO DAILY 30 Days #30 tablet 09/13/18 Meclizine HCl [Antivert -] 50 mg PO BID 30 Days #120 tablet 09/13/18 Metoprolol Succinate 25 mg PO BID 09/13/18 Miscellaneous Medical Supply [Glucometer Device] 1 each .ROUTE ASDIR #1 kit 07/03 Miscellaneous Medical Supply [Glucometer Test Strips #100] 1 each .ROUTE ASDIR 30 Days #1 box 09/13/18 Nitrofurantoin Monohyd/M-Cryst [Macrobid -] 100 mg PO BID 5 Days #10 capsule 07/03 Pravastatin Sodium 20 mg PO DAILY 09/13/18 Clopidogrel Bisulfate [Plavix] 75 mg PO DAILY 09/14/18 This patient is new to me today: No Emergency Visit: Yes ED Registration Date: 09/13/18 Care time: The patient presented to the Emergency Department on the above date and was hospitalized for further evaluation of their emergent condition. Critical Care patient: No - Discharge Referral Referred to [facility] Med [facility].C.: No
[2018-09-14] MEDS ORDERED: CEFTRIAXONE 1 GM in DEXTROSE 5%-WATER - 50 ML IVPB ONE (10:00)
[2018-09-14] MEDS ORDERED: LISINOPRIL 5 MG TABLET (FP) PO SCH (10:00)
[2018-09-14] MEDS ORDERED: ASPIRIN 325 MG ENTERIC COATED TABLET (FP) PO SCH (10:00)
[2018-09-14] MEDS ORDERED: PATIENT'S OWN MEDICATION (NON-FORMULARY) (Pravastatin Sodium [Pravastatin Sodium] 20 MG) PO SCH (10:00)
[2018-09-14 10:54] VITALS: BP 131/75; PULSE 82
--- NOTE | 2018-09-14 11:49 | PN ---
Teaching Attending Note Name of Resident: Dinh Pineda ATTENDING PHYSICIAN STATEMENT I saw and evaluated the patient. I reviewed the resident's note and discussed the case with the resident. I agree with the resident's findings and plan as documented. SUBJECTIVE:asymptomatic. had episode of vomiting last night and was monitored overnight. no repeat episodes. no more dizzyness. tolerated breakfast. denies CP , SOB, fever, chills, blurred vision, N/V/C/D OBJECTIVE: Last Vital Signs Temp Pulse Resp BP Pulse Ox 98.1 F 82 18 131/75 97 09/14/18 10:00 09/14/18 10:00 09/14/18 10:00 09/14/18 10:00 09/14/18 09:00 General NAD HEENT no nystagmus CV s1 s2 RRR no murmur/rub/gallop Lungs CTA B/L no wheezng/rales/rhonchi Abdomen soft NT/ND Extremities no pedal edema ASSESSMENT AND PLAN: 67yo F with PMH CAD s/p CABG, DM, HTN and vertigo presented wot the ER wtih worsening vertigo 1. Vertigo-resolved. cont with meclizine prn. ENT follow up as outpatient. MRI negative. 2. UTI- on ceftriaxone day 2. will d/c on macrobid to complete. avoid bactrim wtih acei use. f/u Cx 3. DM- uncontrolled. A1c 12. will increase lantus to 10 units. tight monitoring. make appt with endo next week to further titration. s 4. HTN- improved. cont current management 5. hypomagnesemia- resolved 6. CAD s/p CABG- cont asa/plavix. cardio follow up to determine if DUAPT is necessary going forward. unclear if on for another indication 7. d/c home
== END 2018-09-14 12:57 | disposition home health service (06) ==
LOC: JER 21:35 → UNDOADMOB 09-13 01:11 → INTOOBSV 09-13 01:11 → JERBED 09-13 01:11 → J4S 09-13 16:11
PROVIDERS: ADMIT Internal Medicine; ATTEND Internal Medicine
PROC: 3E03329 Introduction of Other Anti-infective into Peripheral Vein, Percutaneous Approach (ICD-10-PCS; principal; 2018-09-13)
PROC: 3E013VG Introduction of Insulin into Subcutaneous Tissue, Percutaneous Approach (ICD-10-PCS; 2018-09-13)
DX: R42 Dizziness and giddiness (principal); R27.0 Ataxia, unspecified; E11.65 Type 2 diabetes mellitus with hyperglycemia; I25.10 Atherosclerotic heart disease of native coronary artery without angina pectoris; E66.01 Morbid (severe) obesity due to excess calories; Z68.42 Body mass index [BMI] 45.0-49.9, adult; N39.0 Urinary tract infection, site not specified; I10 Essential (primary) hypertension; E83.42 Hypomagnesemia; Z95.1 Presence of aortocoronary bypass graft; Z79.4 Long term (current) use of insulin; Z79.82 Long term (current) use of aspirin; Z88.0 Allergy status to penicillin; Z88.1 Allergy status to other antibiotic agents; Z91.038 Other insect allergy status; Z95.5 Presence of coronary angioplasty implant and graft
CPT/HCPCS: 36415; 70450-TC; 70551-TC; 80048; 80053; 81003; 82962; 83036; 83735; 84100; 84484; 85025; 87086; 93005; 93010; 93880-TC; 96365; 96367; 96372; 97116-GP; 97161-GP; 99285-25; G0378

== ENCOUNTER 2023-03-24 11:57 | Inpatient (IN) | payer OTHER ==
[2023-03-24 13:41] LABS: VENOUS BASE EXCESS 0.8 mmol/L (-2-2); VENOUS O2 SATURATION 55.8 % (70-80); VENOUS PCO2 45.4 mmHg (38-52); VENOUS PH 7.383 (7.310-7.410)
[2023-03-24 13:52] LABS: CHLORIDE 101 mmol/L (98-107)
[2023-03-24 13:54] LABS: CALCIUM 9.8 mg/dL (8.5-10.1)
[2023-03-24 13:55] LABS: ALBUMIN 2.8 g/dl (3.4-5.0); BLOOD UREA NITROGEN 20.9 mg/dL (7-18); CO2 28 mmol/L (21-32); GLUCOSE,RANDOM 392 mg/dL (74-106); HEMATOCRIT 47.8 % (32.4-45.2); HEMOGLOBIN 16.2 GM/dL (10.7-15.3); MAGNESIUM 1.8 mg/dL (1.8-2.4); MCH 28.7 pg (25.7-33.7); MCHC 33.8 g/dl (32.0-36.0); MEAN CELL VOLUME 85.2 fl (80-96); MEAN PLT VOLUME 8.3 fl (7.5-11.1); PLATELET COUNT 206 10^3/uL (134-434); RBC 5.62 M/mm3 (3.60-5.2); RDW 14.6 % (11.6-15.6); WHITE BLOOD COUNT 11.2 K/mm3 (4.0-10.0)
[2023-03-24 13:57] LABS: CREATININE 0.8 mg/dL (0.55-1.3); SGPT/ALT 18 U/L (13-61)
[2023-03-24 13:58] LABS: SGOT/AST 11 U/L (15-37)
[2023-03-24 13:59] LABS: BILIRUBIN,TOTAL 0.9 mg/dL (0.2-1); TOT PROT 6.6 g/dl (6.4-8.2)
[2023-03-24 14:00] LABS: ALK PHOS 93 U/L (45-117)
[2023-03-24 14:15] LABS: ANION GAP 2 mmol/L (4-13); POTASSIUM 4.5 mmol/L (3.5-5.1); SODIUM 131 mmol/L (136-145)
[2023-03-24] MEDS ORDERED: ACETAMINOPHEN 1000 MG/100 ML BAG IVPB ONE (14:37)
[2023-03-24] MEDS ORDERED: SODIUM CHLORIDE 0.9% 500 ML INFUS.BAG IV ONE (14:37)
[2023-03-24] MEDS ORDERED: ACETAMINOPHEN INJECTION 100 ML IVPB ONE (14:42)
[2023-03-24] MEDS ORDERED: ASPIRIN 81 MG CHEWABLE TABLETS PO ONE (16:01)
[2023-03-24 16:11] LABS: CHOLESTEROL 294 mg/dL (50-200)
[2023-03-24 16:13] LABS: LDL CHOLESTEROL (ONLY SJRH) 215 mg/dL (5-100)
[2023-03-24 16:14] LABS: HDL CHOLESTEROL 51 mg/dL (40-60)
[2023-03-24] MEDS ORDERED: INSULIN SLIDING SCALE (NOVOLOG) 1 VIAL SQ SCH (16:30)
[2023-03-24] MEDS ORDERED: ASPIRIN 81 MG CHEWABLE TABLETS ONE (16:31)
[2023-03-24] MEDS ORDERED: SODIUM CHLORIDE 1,000 ML IV SCH (17:30)
[2023-03-24] MEDS ORDERED: ATORVASTATIN CA 40 MG TABLET (FP) ONE (22:19)
[2023-03-24] MEDS: ATORVASTATIN CA 40 MG TABLET (FP) PO SCH (22:36)
[2023-03-24] MEDS: INSULIN SLIDING SCALE (NOVOLOG) 1 VIAL SQ SCH (22:37)
[2023-03-24 22:58] LABS: INR 1.11 (0.83-1.09); PROTHROMBIN TIME (PATIENT) 12.9 SEC (9.7-13.0)
[2023-03-25] MEDS: INSULIN SLIDING SCALE (NOVOLOG) 1 VIAL SQ SCH ×4 (06:00→21:21)
[2023-03-25 08:23] LABS: BASO % 0.4 % (0-2.0); EOS % 5.1 % (0-4.5); HEMATOCRIT 41.7 % (32.4-45.2); HEMOGLOBIN 14.8 GM/dL (10.7-15.3); LYMPH % 37.6 % (8-40); MCH 29.6 pg (25.7-33.7); MCHC 35.5 g/dl (32.0-36.0); MEAN CELL VOLUME 83.2 fl (80-96); MONO % 9.6 % (3.8-10.2); NEUT % 47.3 % (42.8-82.8); PLATELET COUNT 159 10^3/uL (134-434); RBC 5.01 M/mm3 (3.60-5.2); RDW 14.9 % (11.6-15.6); WHITE BLOOD COUNT 7.5 K/mm3 (4.0-10.0)
[2023-03-25 08:47] LABS: ALBUMIN 2.3 g/dl (3.4-5.0); BLOOD UREA NITROGEN 18.8 mg/dL (7-18); MAGNESIUM 1.8 mg/dL (1.8-2.4)
[2023-03-25 08:49] LABS: PHOSPHOROUS 2.8 mg/dL (2.5-4.9)
[2023-03-25 08:50] LABS: CREATININE 0.7 mg/dL (0.55-1.3)
[2023-03-25 08:51] LABS: BILIRUBIN,TOTAL 0.8 mg/dL (0.2-1); TOT PROT 5.6 g/dl (6.4-8.2)
[2023-03-25] MEDS: ESCITALOPRAM OXALATE 10 MG TABLET PO SCH (09:19)
[2023-03-25] MEDS: ASPIRIN COATED 81 MG TABLET.EC PO SCH (09:19)
[2023-03-25] MEDS: CLOPIDOGREL BISULFATE 75 MG TABLET (FP) PO SCH (09:20)
[2023-03-25 09:52] LABS: EPI CELLS 12 /uL (0-25.1); HYALINE CASTS 0 /uL (0-3.1); PH,URINE 5.5 (5.0-8.0); URINE APPEARANCE CLOUDY; URINE BACTERIA 3095 /uL (0-1359); URINE BILIRUBIN NEGATIVE (NEGATIVE); URINE COLOR YELLOW; URINE GLUCOSE (UA) 3+ (NEGATIVE); URINE KETONE NEGATIVE (NEGATIVE); URINE LEUK ESTERASE 1+ (NEGATIVE); URINE NITRITE POSITIVE (NEGATIVE); URINE PROTEIN TRACE (NEGATIVE); URINE UROBILINOGEN 0.2 mg/dL (0.2-1.0); URINE WBC 1322 /uL (0-25.8)
[2023-03-25] MEDS ORDERED: ENOXAPARIN NA (PORCINE) 40 MG/0.4 ML DISP.SYRIN SQ SCH (10:00)
[2023-03-25 10:46] LABS: URINE CRYSTALS NO SEEN /hpf; URINE RBC 111.3 /uL (0-23.9); YEAST NO SEEN (NEGATIVE)
[2023-03-25] MEDS ORDERED: ACETAMINOPHEN 325 MG TABLET (FP) PO PRN (13:30)
[2023-03-25] MEDS: ACETAMINOPHEN 325 MG TABLET (FP) PO PRN (13:55)
[2023-03-25] MEDS: GABAPENTIN 100 MG CAPSULE PO SCH ×2 (13:56→21:21)
[2023-03-25] MEDS: FAMOTIDINE 20 MG TABLET PO SCH (13:56)
[2023-03-25] MEDS: RIVAROXABAN 10 MG TABLET PO SCH (17:09)
[2023-03-25] MEDS: ATORVASTATIN CA 40 MG TABLET (FP) PO SCH (21:21)
[2023-03-26] MEDS: GABAPENTIN 100 MG CAPSULE PO SCH ×3 (05:52→21:57)
[2023-03-26] MEDS: INSULIN SLIDING SCALE (NOVOLOG) 1 VIAL SQ SCH ×4 (06:15→21:57)
[2023-03-26 08:59] LABS: BASO % 1.1 % (0-2.0); EOS % 3.8 % (0-4.5); HEMATOCRIT 41.9 % (32.4-45.2); HEMOGLOBIN 14.4 GM/dL (10.7-15.3); MCH 29.1 pg (25.7-33.7); MCHC 34.3 g/dl (32.0-36.0); MEAN CELL VOLUME 84.8 fl (80-96); MEAN PLT VOLUME 8.1 fl (7.5-11.1); MONO % 9.1 % (3.8-10.2); PLATELET COUNT 158 10^3/uL (134-434); RBC 4.94 M/mm3 (3.60-5.2); RDW 14.2 % (11.6-15.6); WHITE BLOOD COUNT 8.5 K/mm3 (4.0-10.0)
[2023-03-26 09:07] LABS: CALCIUM 9.3 mg/dL (8.5-10.1)
[2023-03-26 09:08] LABS: ALBUMIN 2.4 g/dl (3.4-5.0); BLOOD UREA NITROGEN 15.6 mg/dL (7-18)
[2023-03-26 09:10] LABS: CREATININE 0.6 mg/dL (0.55-1.3)
[2023-03-26 09:13] LABS: BILIRUBIN,TOTAL 0.6 mg/dL (0.2-1); TOT PROT 5.5 g/dl (6.4-8.2)
[2023-03-26] MEDS: ESCITALOPRAM OXALATE 10 MG TABLET PO SCH (09:48)
[2023-03-26] MEDS: FAMOTIDINE 20 MG TABLET PO SCH (09:48)
[2023-03-26] MEDS: CLOPIDOGREL BISULFATE 75 MG TABLET (FP) PO SCH (09:48)
[2023-03-26] MEDS: ASPIRIN COATED 81 MG TABLET.EC PO SCH (09:48)
[2023-03-26] MEDS: INSULIN (LEVEMIR) 100 UNITS/ML UNITS SQ SCH ×2 (10:00→21:57)
[2023-03-26] MEDS: ACETAMINOPHEN 325 MG TABLET (FP) PO PRN (10:36)
[2023-03-26] MEDS: SULFAMETHOXAZOLE/TRIMETHOPRIM 800MG/160MG D.S. TABLET PO SCH ×2 (12:28→21:56)
[2023-03-26] MEDS ORDERED: LORATADINE 10 MG TABLET PO PRN (16:54)
[2023-03-26] MEDS ORDERED: POLYETHYLENE GLYCOL (HEALTHYLAX) 3350 17 GM PACKET PO PRN (16:54)
[2023-03-26] MEDS: RIVAROXABAN 10 MG TABLET PO SCH (17:22)
[2023-03-26] MEDS: ATORVASTATIN CA 80 MG TABLET (FP) PO SCH (21:57)
[2023-03-27] MEDS: GABAPENTIN 100 MG CAPSULE PO SCH ×3 (06:24→21:23)
[2023-03-27] MEDS: INSULIN SLIDING SCALE (NOVOLOG) 1 VIAL SQ SCH ×4 (06:24→21:24)
[2023-03-27] MEDS: INSULIN (LEVEMIR) 100 UNITS/ML UNITS SQ SCH ×2 (06:24→21:24)
[2023-03-27] MEDS ORDERED: INSULIN (LEVEMIR) 100 UNITS/ML UNITS SQ ONE ×2 (06:31→07:45)
[2023-03-27] MEDS ORDERED: INSULIN SLIDING SCALE (NOVOLOG) 1 VIAL SQ ONE (06:31)
[2023-03-27 08:02] LABS: BASO % 1.3 % (0-2.0); EOS % 4.5 % (0-4.5); HEMATOCRIT 41.6 % (32.4-45.2); HEMOGLOBIN 14.2 GM/dL (10.7-15.3); LYMPH % 35.3 % (8-40); MCH 29.1 pg (25.7-33.7); MCHC 34.2 g/dl (32.0-36.0); MEAN PLT VOLUME 8.2 fl (7.5-11.1); MONO % 11.6 % (3.8-10.2); NEUT % 47.3 % (42.8-82.8); PLATELET COUNT 149 10^3/uL (134-434); RDW 14.3 % (11.6-15.6); WHITE BLOOD COUNT 7.7 K/mm3 (4.0-10.0)
[2023-03-27 08:17] LABS: POTASSIUM 4.1 mmol/L (3.5-5.1)
[2023-03-27 08:23] LABS: ALBUMIN 2.3 g/dl (3.4-5.0); BLOOD UREA NITROGEN 17.5 mg/dL (7-18); CALCIUM 8.8 mg/dL (8.5-10.1)
[2023-03-27 08:25] LABS: CREATININE 0.7 mg/dL (0.55-1.3)
[2023-03-27 08:27] LABS: BILIRUBIN,TOTAL 0.5 mg/dL (0.2-1); TOT PROT 5.5 g/dl (6.4-8.2)
[2023-03-27] MEDS: FAMOTIDINE 20 MG TABLET PO SCH (09:01)
[2023-03-27] MEDS: ASPIRIN COATED 81 MG TABLET.EC PO SCH (09:01)
[2023-03-27] MEDS: SULFAMETHOXAZOLE/TRIMETHOPRIM 800MG/160MG D.S. TABLET PO SCH ×2 (09:01→21:23)
[2023-03-27] MEDS: ESCITALOPRAM OXALATE 10 MG TABLET PO SCH (09:01)
[2023-03-27] MEDS: CLOPIDOGREL BISULFATE 75 MG TABLET (FP) PO SCH (09:01)
[2023-03-27] MEDS: HYDROCORTISONE 1% TOPICAL CREAM 30 GM TUBE TP PRN ×2 (09:02→11:47)
[2023-03-27] MEDS: INSULIN (NOVOLOG) ASPART 100 UNITS/ML 10ML VIAL SQ SCH ×2 (11:47→17:05)
[2023-03-27] MEDS: BACITRACIN ZINC 15 GM TUBE TOPICAL OINTMENT TP SCH (11:55)
[2023-03-27] MEDS: EMPAGLIFLOZIN (JARDIANCE) 10 MG TABLET PO SCH (12:02)
[2023-03-27] MEDS: RIVAROXABAN 10 MG TABLET PO SCH (17:03)
[2023-03-27] MEDS: ATORVASTATIN CA 80 MG TABLET (FP) PO SCH (21:23)
[2023-03-28] MEDS: GABAPENTIN 100 MG CAPSULE PO SCH ×3 (06:07→22:03)
[2023-03-28] MEDS: INSULIN (LEVEMIR) 100 UNITS/ML UNITS SQ SCH ×2 (06:08→22:09)
[2023-03-28] MEDS: INSULIN (NOVOLOG) ASPART 100 UNITS/ML 10ML VIAL SQ SCH ×3 (06:09→16:15)
[2023-03-28] MEDS: INSULIN SLIDING SCALE (NOVOLOG) 1 VIAL SQ SCH ×4 (06:09→22:09)
[2023-03-28] MEDS ORDERED: INSULIN (LEVEMIR) 100 UNITS/ML UNITS SQ ONE (06:49)
[2023-03-28] MEDS ORDERED: INSULIN SLIDING SCALE (NOVOLOG) 1 VIAL SQ ONE (06:49)
[2023-03-28] MEDS: ASPIRIN COATED 81 MG TABLET.EC PO SCH (09:29)
[2023-03-28] MEDS: CLOPIDOGREL BISULFATE 75 MG TABLET (FP) PO SCH (09:29)
[2023-03-28] MEDS: ESCITALOPRAM OXALATE 10 MG TABLET PO SCH (09:29)
[2023-03-28] MEDS: SULFAMETHOXAZOLE/TRIMETHOPRIM 800MG/160MG D.S. TABLET PO SCH ×2 (09:30→22:03)
[2023-03-28] MEDS: FAMOTIDINE 20 MG TABLET PO SCH (09:30)
[2023-03-28] MEDS: BACITRACIN ZINC 15 GM TUBE TOPICAL OINTMENT TP SCH (09:30)
[2023-03-28] MEDS: EMPAGLIFLOZIN (JARDIANCE) 10 MG TABLET PO SCH (09:30)
[2023-03-28 09:45] LABS: HEMATOCRIT 41.6 % (32.4-45.2); MCH 28.8 pg (25.7-33.7); MCHC 33.7 g/dl (32.0-36.0); MEAN CELL VOLUME 85.5 fl (80-96); MEAN PLT VOLUME 8.7 fl (7.5-11.1); PLATELET COUNT 158 10^3/uL (134-434); RBC 4.86 M/mm3 (3.60-5.2); RDW 14.7 % (11.6-15.6); WHITE BLOOD COUNT 9.7 K/mm3 (4.0-10.0)
[2023-03-28 09:56] LABS: POTASSIUM 3.9 mmol/L (3.5-5.1)
[2023-03-28 09:57] LABS: BLOOD UREA NITROGEN 16.8 mg/dL (7-18); CALCIUM 9.8 mg/dL (8.5-10.1)
[2023-03-28 10:01] LABS: CREATININE 0.8 mg/dL (0.55-1.3)
[2023-03-28] MEDS: RIVAROXABAN 10 MG TABLET PO SCH (17:22)
[2023-03-28] MEDS: ACETAMINOPHEN 325 MG TABLET (FP) PO PRN (20:21)
[2023-03-28] MEDS ORDERED: MELATONIN 5 MG TABLETS PO ONE (20:44)
[2023-03-28] MEDS: MECLIZINE HCL 12.5 MG TABLET PO PRN (22:01)
[2023-03-28] MEDS: ATORVASTATIN CA 80 MG TABLET (FP) PO SCH (22:01)
[2023-03-29] MEDS: GABAPENTIN 100 MG CAPSULE PO SCH ×3 (06:10→21:25)
[2023-03-29] MEDS: INSULIN (LEVEMIR) 100 UNITS/ML UNITS SQ SCH ×2 (06:14→21:30)
[2023-03-29] MEDS: INSULIN (NOVOLOG) ASPART 100 UNITS/ML 10ML VIAL SQ SCH ×3 (06:15→16:24)
[2023-03-29] MEDS: INSULIN SLIDING SCALE (NOVOLOG) 1 VIAL SQ SCH ×4 (06:15→21:29)
[2023-03-29 09:47] LABS: BASO % 1.1 % (0-2.0); EOS % 5.2 % (0-4.5); HEMATOCRIT 39.9 % (32.4-45.2); HEMOGLOBIN 13.6 GM/dL (10.7-15.3); LYMPH % 32.7 % (8-40); MCH 29.1 pg (25.7-33.7); MCHC 34.1 g/dl (32.0-36.0); MEAN CELL VOLUME 85.2 fl (80-96); MEAN PLT VOLUME 8.7 fl (7.5-11.1); MONO % 11.3 % (3.8-10.2); NEUT % 49.7 % (42.8-82.8); PLATELET COUNT 158 10^3/uL (134-434); RBC 4.69 M/mm3 (3.60-5.2); RDW 14.5 % (11.6-15.6); WHITE BLOOD COUNT 7.1 K/mm3 (4.0-10.0)
[2023-03-29 10:13] LABS: POTASSIUM 3.6 mmol/L (3.5-5.1)
[2023-03-29 10:22] LABS: CALCIUM 9.7 mg/dL (8.5-10.1)
[2023-03-29 10:23] LABS: BLOOD UREA NITROGEN 18.9 mg/dL (7-18)
[2023-03-29 10:26] LABS: CREATININE 0.9 mg/dL (0.55-1.3)
[2023-03-29] MEDS: FAMOTIDINE 20 MG TABLET PO SCH (11:10)
[2023-03-29] MEDS: SULFAMETHOXAZOLE/TRIMETHOPRIM 800MG/160MG D.S. TABLET PO SCH ×2 (11:10→21:26)
[2023-03-29] MEDS: ASPIRIN COATED 81 MG TABLET.EC PO SCH (11:10)
[2023-03-29] MEDS: CLOPIDOGREL BISULFATE 75 MG TABLET (FP) PO SCH (11:10)
[2023-03-29] MEDS: ESCITALOPRAM OXALATE 10 MG TABLET PO SCH (11:10)
[2023-03-29] MEDS: BACITRACIN ZINC 15 GM TUBE TOPICAL OINTMENT TP SCH (11:10)
[2023-03-29] MEDS: EMPAGLIFLOZIN (JARDIANCE) 10 MG TABLET PO SCH (11:24)
[2023-03-29] MEDS: RIVAROXABAN 10 MG TABLET PO SCH (17:28)
[2023-03-29] MEDS: ATORVASTATIN CA 80 MG TABLET (FP) PO SCH (21:25)
[2023-03-29] MEDS: ACETAMINOPHEN 325 MG TABLET (FP) PO PRN (21:26)
[2023-03-29] MEDS: MECLIZINE HCL 12.5 MG TABLET PO PRN (21:26)
[2023-03-30] MEDS: GABAPENTIN 100 MG CAPSULE PO SCH ×2 (06:14→13:41)
[2023-03-30] MEDS: INSULIN (LEVEMIR) 100 UNITS/ML UNITS SQ SCH (06:17)
[2023-03-30] MEDS: INSULIN (NOVOLOG) ASPART 100 UNITS/ML 10ML VIAL SQ SCH ×2 (06:18→11:21)
[2023-03-30] MEDS: INSULIN SLIDING SCALE (NOVOLOG) 1 VIAL SQ SCH ×2 (06:20→11:22)
[2023-03-30 07:47] LABS: HEMATOCRIT 39.7 % (32.4-45.2); HEMOGLOBIN 13.5 GM/dL (10.7-15.3); MCH 29.1 pg (25.7-33.7); MCHC 34.1 g/dl (32.0-36.0); MEAN CELL VOLUME 85.2 fl (80-96); MEAN PLT VOLUME 8.4 fl (7.5-11.1); PLATELET COUNT 145 10^3/uL (134-434); RBC 4.66 M/mm3 (3.60-5.2); RDW 14.5 % (11.6-15.6); WHITE BLOOD COUNT 6.6 K/mm3 (4.0-10.0)
[2023-03-30 08:06] LABS: POTASSIUM 3.9 mmol/L (3.5-5.1)
[2023-03-30 08:29] LABS: BLOOD UREA NITROGEN 19.3 mg/dL (7-18)
[2023-03-30 08:32] LABS: CREATININE 0.8 mg/dL (0.55-1.3)
[2023-03-30] MEDS: CLOPIDOGREL BISULFATE 75 MG TABLET (FP) PO SCH (11:00)
[2023-03-30] MEDS: EMPAGLIFLOZIN (JARDIANCE) 10 MG TABLET PO SCH (11:01)
[2023-03-30] MEDS: ASPIRIN COATED 81 MG TABLET.EC PO SCH (11:01)
[2023-03-30] MEDS: SULFAMETHOXAZOLE/TRIMETHOPRIM 800MG/160MG D.S. TABLET PO SCH (11:01)
[2023-03-30] MEDS: FAMOTIDINE 20 MG TABLET PO SCH (11:02)
[2023-03-30] MEDS: ESCITALOPRAM OXALATE 10 MG TABLET PO SCH (11:02)
[2023-03-30] MEDS: BACITRACIN ZINC 15 GM TUBE TOPICAL OINTMENT TP SCH (11:09)
[2023-03-30 12:39] VITALS: RESP 16
[2023-03-30 12:56] VITALS: BMI 42.9
[2023-03-30 14:20] VITALS: BP 100/52; PULSE 92; TEMP 98.6
== END 2023-03-30 16:41 | DRG 65 ==
LOC: JER 11:57 → JERBED 14:47 → J4S 23:27
PROVIDERS: ADMIT Internal Medicine; ATTEND Internal Medicine
DX: I63.81 Other cerebral infarction due to occlusion or stenosis of small artery (principal); N39.0 Urinary tract infection, site not specified; Z68.41 Body mass index [BMI] 40.0-44.9, adult; R29.700 NIHSS score 0; I25.10 Atherosclerotic heart disease of native coronary artery without angina pectoris; H91.92 Unspecified hearing loss, left ear; F41.8 Other specified anxiety disorders; E11.65 Type 2 diabetes mellitus with hyperglycemia; E78.5 Hyperlipidemia, unspecified; R42 Dizziness and giddiness; R32 Unspecified urinary incontinence; E66.01 Morbid (severe) obesity due to excess calories; B95.61 Methicillin susceptible Staphylococcus aureus infection as the cause of diseases classified elsewhere; Z88.0 Allergy status to penicillin; Z95.1 Presence of aortocoronary bypass graft; Z95.5 Presence of coronary angioplasty implant and graft
CPT/HCPCS: 36415; 71045-TC-FY; 80048; 80053; 80061; 81003; 82010; 82550; 82607; 82746; 82803; 82962; 83036; 83735; 84100; 84443; 84484; 85025; 85027; 85610; 85651; 85730; 86140; 87086; 87186; 93005; 93010; 93306-TC; 93880-TC; 97116-GP; 97162-GP; 99285-25